=== PATIENT | male | born 1990 | race Caucasian/White ===

== ENCOUNTER 2020-04-20 14:30 | Emergency (ER) | payer BC ==
[~2020-04-20] VITALS: Ht 177.8 cm; Wt 120.0 kg
[2020-04-20 14:30] VITALS: BP 141/91
--- NOTE | 2020-04-20 14:44 | PHYS DOC ---
Past History Past Medical History: GERD Past Surgical History: No Surgical History Smoking: Cigarettes Alcohol Use: None Drug Use: None General Adult EDM: Chief Complaint: CHEST PAIN HPI: HPI: 29 year old male presents via EMS with report of chest pain with radiation to left arm. Denies trauma. Denies pleuritic pain. Denies leg swelling or calf tenderness. Cardiac risk factors of smoking. Denies history or family history of PE/DVT. 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 Reports some cough. Denies fever/chills. Review of Systems: Review of Systems: Constitutional: Denies fever or chills Eyes: Denies change in visual acuity HENT: Denies nasal congestion or sore throat Respiratory: Denies cough or shortness of breath Cardiovascular: Reports chest pain; denies edema GI: Denies abdominal pain, nausea, or vomiting Musculoskeletal: Denies back pain; reports left arm pain Neurologic: Denies headache, focal weakness or sensory changes Complete systems reviewed and found to be within normal limits, except as documented in the note. Heart Score: HEART Score for Chest Pain: HEART Score for Chest Pain Response (Comments) Value History Slighlty/Non-Suspicious 0 ECG Normal 0 Age < 45 0 Risk Factors 1 or 2 Risk Factors 1 Troponin < Normal Limit 0 Total 1 Risk Factors: Risk Factors: DM, Current or recent (<one month) smoker, HTN, HLP, family history of CAD, obesity. Risk Scores: Score 0 - 3: 2.5% MACE over next 6 weeks - Discharge Home Score 4 - 6: 20.3% MACE over next 6 weeks - Admit for Clinical Observation Score 7 - 10: 72.7% MACE over next 6 weeks - Early Invasive Strategies Physical Exam: PE: Constitutional: Well developed, well nourished, no acute distress, non-toxic appearance HENT: Normocephalic, atraumatic Eyes: Conjunctiva normal, no discharge Neck: Normal range of motion, no tenderness, supple Cardiovascular: Heart rate normal, regular rhythm Lungs & Thorax: Bilateral breath sounds clear to auscultation, no respiratory distress Abdomen: Soft, no tenderness Skin: Warm, dry, no erythema, no rash Extremities: No tenderness, left radial pulse +2, ROM intact, no edema Neurologic: Alert and oriented X 3, normal motor function, normal sensory function, no focal deficits noted Psychologic: Affect anxious, judgement normal EKG: EKG: @1438 NSR at 64bpm, NO ST elevation, QRS 90ms, QT/QTc 366/381ms Radiology/Procedures: Radiology/Procedures: PROCEDURE: PORTABLE CHEST 1V Single view of the chest. 04/20/2020 2:41 PM Indication: Chest pain Comparison: None Findings: Lordotic projection noted. There is no focal consolidation. There is no pleural effusion or pneumothorax. The cardiomediastinal silhouette and pulmonary vasculature are within normal limits. No acute osseous abnormalities are seen. Impression: No evidence of acute cardiopulmonary process. Electronically signed by: Jerry Stevens MD (04/20/2020 3:08 PM) [id number] Course & Med Decision Making: Course & Med Decision Making Pertinent Labs and Imaging studies reviewed. (See chart for details) Patient with low cardiac risk factors presents with chest pain and left arm pain. EKG stable. Labs obtained and posted to chart. Troponin WNL. PERC rule satisfied. CXR without acute process. Patient with history of positive COVID- [address] Denies fever. Reports cough. Patient reports he has been tested x 2 and both have been negative. Doubt COVID but cannot fully exclude. Patient advised can test at health department if warranted. HEART score 1. Patient stable for discharge home without outpatient follow-up with PCP. Discussed findings and plan with patient, who acknowledges understanding and agreement. COVID-19 CRITERIA: The patient was evaluated during the global COVID-19 pandemic, and that diagnosis was suspected/considered upon their initial presentation. Their evaluation, treatment and testing was consistent with current guidelines for patients who present with complaints or symptoms that may be related to COVID-19. Dragon Disclaimer: Dragon Disclaimer: This electronic medical record was generated, in whole or in part, using a voice recognition dictation system. Departure Departure: Impression: Primary Impression: Atypical chest pain Disposition: HOME/RESIDENCE PRIOR TO ADM Condition: STABLE Referrals: ALFREDA FINLEY MD, SCOTT S MD Patient Instructions: Chest Pain (Nonspecific), [id number] PERC Rule for PE PERC Rule for PE Response (Comments) Value Age > 50: No 0 HR > 100: No 0 Sa02 on room air <95%: No 0 Unilateral leg swelling: No 0 Hemoptysis: No 0 Recent surgery or trauma: No 0 Prior PE or DVT: No 0 Hormone use: No 0 Total 0 COVID-19 Assessment COVID-19 Patient Risks: Age 65 or older: No Sign of co-morbidity: No Exp to person + for COVID: Yes Exp to PUI: No Travel from affected area: No Lower respiratory symptoms: Yes Fever: No PPE Use: Full PPE with N95 mask or PAPR: Yes NAYE NEGRON DO April 20, 2020 14:44
[2020-04-20] MEDS ORDERED: IV NORMAL SALINE 1,000ML 1,000 ML IV ONE (14:55)
--- NOTE | 2020-04-20 15:11 | RAD ---
Single view of the chest. 04/20/2020 2:41 PM Indication: Chest pain Comparison: None Findings: Lordotic projection noted. There is no focal consolidation. There is no pleural effusion or pneumothorax. The cardiomediastinal silhouette and pulmonary vasculature are within normal limits. No acute osseous abnormalities are seen. Impression: No evidence of acute cardiopulmonary process. Electronically signed by: Jerry Stevens MD (04/20/2020 3:08 PM) [id number]
[2020-04-20 15:15] LABS: BASO # 0.1 x10^3/uL (0.0-0.2); BASO % 1 % (0-3); EOS # 0.3 x10^3/uL (0.0-0.7); EOS % 3 % (0-3); HEMOGLOBIN 15.3 g/dL (13.0-17.5); LYMPH # 4.9 x10^3/uL (1.0-4.8); LYMPH % 35 % (24-48); MEAN CORPUSCULAR HEMOGLOBIN 30 pg (25-35); MEAN CORPUSCULAR HGB CONC 33 g/dL (31-37); MEAN CORPUSCULAR VOLUME 90 fL (79-100); MONO % 7 % (0-9); NEUT # 7.6 x10^3uL (1.8-7.7); NEUT % 55 % (31-73); PLATELET COUNT 290 x10^3/uL (140-400); RED BLOOD COUNT 5.13 x10^6/uL (4.30-5.70); RED CELL DISTRIBUTION WIDTH 13.2 % (11.5-14.5); WHITE BLOOD COUNT 13.9 x10^3/uL (4.0-11.0)
[2020-04-20 15:28] LABS: CALCIUM 9.4 mg/dL (8.5-10.1); CREATININE 0.9 mg/dL (0.7-1.3); GFR 100.5
[2020-04-20 15:42] LABS: ALBUMIN 4.2 g/dL (3.4-5.0); ALBUMIN/GLOBULIN RATIO 1.4 (1.0-1.7); MAGNESIUM 2.2 mg/dL (1.8-2.4); TOTAL BILIRUBIN 0.5 mg/dL (0.2-1.0); TOTAL PROTEIN 7.3 g/dL (6.4-8.2)
--- NOTE | 2020-04-20 15:44 | EKG ---
[address] [address] Test Date: 2020-04-20 Test Time: 14:38:48 Pat Name: SANJUANA SINGH Department: Room: Gender: M Hedis Manager: : 1990 Requested By: NAYE NEGRON Order Number: [id number] Reading MD: Bernardino Tobar Measurements Intervals [place] Rate: 64 P: 0 [place]: 150 QRS: 28 QRSD: 90 T: 10 QT: 366 QTc: 381 Interpretive Statements SINUS RHYTHM NORMAL ECG RI6.02 No previous ECG available for comparison Electronically Signed On 04-20-2020 15:54:48 CDT by Bernardino Tobar
== END 2020-04-20 16:00 | disposition home or self-care (01) ==
LOC: ER 14:30
DX: R07.89 Other chest pain (principal); K21.9 Gastro-esophageal reflux disease without esophagitis; F17.210 Nicotine dependence, cigarettes, uncomplicated; M79.602 Pain in left arm
CPT/HCPCS: 36415; 71045; 80053; 82553; 83690; 83735; 83880; 84484; 85025; 93005; 99285-25; J7030

== ENCOUNTER 2020-07-27 19:10 | Emergency (ER) | payer BC, OTHER ==
[~2020-07-27] VITALS: Ht 177.8 cm; Wt 129.5 kg
[2020-07-27 19:10] VITALS: BP 153/95
--- NOTE | 2020-07-27 19:45 | RAD ---
Right finger 3 views: Reason for examination: Right third digit smashed in door with bruising and swelling distally. 3 views of the third digit were obtained. There is a fracture at the medial aspect of the terminal tuft of the distal phalanx in the right third digit which is minimally displaced. No other site of fracture or dislocation is seen. The bone density is normal. No abnormal periosteal reaction is seen. Joint spaces are maintained. IMPRESSION: Fracture at the medial aspect of the terminal tuft with minimal displacement. Electronically signed by: Carmel Ponce MD (07/27/2020 7:42 PM) JAMILAH
[2020-07-27] MEDS ORDERED: OXYC-325 PO (20:00)
--- NOTE | 2020-07-27 20:00 | PHYS DOC ---
Past History Past Medical History: GERD, Other Additional Past Medical Histor: KIDNEY STONES Past Surgical History: Other Additional Past Surgical Histo: SURGERY KIDNEY STONES Smoking: Cigarettes Alcohol Use: Occasionally Drug Use: None General Adult EDM: Chief Complaint: FINGER INJURY HPI: HPI: 29-year-old male presents with right middle finger pain. The patient works as a road crossing guard. He was closing a cell door and his middle finger got caught at the edge of the door and was compressed. It is swollen and very painful. He has partial bruise underneath the nail. He is concerned for fracture. He denies any other injuries or complaints. Review of Systems: Review of Systems: Constitutional: Denies fever or chills Eyes: Denies change in visual acuity HENT: Denies nasal congestion or sore throat Respiratory: Denies cough or shortness of breath Cardiovascular: Denies chest pain or edema GI: Denies abdominal pain, nausea, vomiting, bloody stools or diarrhea : Denies dysuria Musculoskeletal: Right middle finger pain Integument: Denies rash Neurologic: Denies headache, focal weakness or sensory changes Endocrine: Denies polyuria or polydipsia Lymphatic: Denies swollen glands Psychiatric: Denies depression or anxiety Heart Score: Risk Factors: Risk Factors: DM, Current or recent (<one month) smoker, HTN, HLP, family history of CAD, obesity. Risk Scores: Score 0 - 3: 2.5% MACE over next 6 weeks - Discharge Home Score 4 - 6: 20.3% MACE over next 6 weeks - Admit for Clinical Observation Score 7 - 10: 72.7% MACE over next 6 weeks - Early Invasive Strategies Allergies: Allergies: Allergies Coded Allergies Type Severity Reaction Last Updated Verified Penicillins Allergy Unknown 04/20/20 Yes Physical Exam: PE: Constitutional: Well developed, well nourished, no acute distress, non-toxic appearance. [] HENT: Normocephalic, atraumatic, bilateral external ears normal, oropharynx moist, no oral exudates, nose normal. [] Eyes: PERRLA, EOMI, conjunctiva normal, no discharge. [] Neck: Normal range of motion, no tenderness, supple, no stridor. [] Cardiovascular:Heart rate regular rhythm, no murmur [] Lungs & Thorax: Bilateral breath sounds clear to auscultation [] Abdomen: Bowel sounds normal, soft, no tenderness, no masses, no pulsatile masses. [] Skin: Warm, dry, no erythema, no rash. [] Back: No tenderness, no CVA tenderness. [] Extremities: Ecchymosis, swelling, tenderness of the right middle finger [] Neurologic: Alert and oriented X 3, normal motor function, normal sensory function, no focal deficits noted. [] Psychologic: Affect normal, judgement normal, mood normal. [] Current Patient Data: Vital Signs: Vital Signs Date Time Temp Pulse Resp B/P (MAP) Pulse Ox O2 Delivery O2 Flow Rate FiO2 07/27/20 19:10 97.1 97 18 153/95 (114) 97 Room Air EKG: EKG: [] Radiology/Procedures: Radiology/Procedures: [] Impressions: Right finger 3 views: Reason for examination: Right third digit smashed in door with bruising and swelling distally. 3 views of the third digit were obtained. There is a fracture at the medial aspect of the terminal tuft of the distal phalanx in the right third digit which is minimally displaced. No other site of fracture or dislocation is seen. The bone density is normal. No abnormal periosteal reaction is seen. Joint spaces are maintained. IMPRESSION: Fracture at the medial aspect of the terminal tuft with minimal displacement. Electronically signed by: Carmel Gudino MD (07/27/2020 7:42 PM) [facility], [facility] [place] DICTATED AND SIGNED BY: CARMEL GUDINO MD DATE: 07/27/201941 CC: SHAY LYNCH DO; PCP,UNKNOWN ~ Course & Med Decision Making: Course & Med Decision Making Pertinent Labs and Imaging studies reviewed. (See chart for details) The patient has a fracture of the distal tuft of the right middle phalange. The patient has had difficulty with pain medications working for him in the past. I will prescribe Percocet 5/325 for his fracture. He may need his fingernail drained if the pressure does not improve over the next 24 hours. Patient is aware of this and will return for further treatment if necessary. He is stable for discharge at this time. [] Dragon Disclaimer: Dragon Disclaimer: This electronic medical record was generated, in whole or in part, using a voice recognition dictation system. Departure Departure: Impression: Primary Impression: Fracture of phalanx of right middle finger Qualified Codes: S62.632A - Displaced fracture of distal phalanx of right middle finger, initial encounter for closed fracture Disposition: HOME/RESIDENCE PRIOR TO ADM Condition: STABLE Referrals: PCP,UNKNOWN (PCP) Patient Instructions: Finger Fracture, [id number] Scripts Oxycodone HCl/Acetaminophen (Percocet 5-325 mg Tablet) 1 Each Tablet 1 TAB PO PRN QID PRN for PAIN MDD 4 Tablet(s), #14 TAB 0 Refills Prov: SHAY LYNCH DO 07/27/20 Justification of Admission: Justification of Admission: Justification of Admission Dx: N/A SHAY LYNCH DO Jul 27, 2020 20:00
== END 2020-07-27 20:15 | disposition home or self-care (01) ==
LOC: ER 19:10
DX: S62.632A Displaced fracture of distal phalanx of right middle finger, initial encounter for closed fracture (principal); K21.9 Gastro-esophageal reflux disease without esophagitis; F17.210 Nicotine dependence, cigarettes, uncomplicated; Z87.442 Personal history of urinary calculi; Z88.0 Allergy status to penicillin; W23.0XXA Caught, crushed, jammed, or pinched between moving objects, initial encounter; Y93.89 Activity, other specified; Y92.149 Unspecified place in prison as the place of occurrence of the external cause; Y99.0 Civilian activity done for income or pay
CPT/HCPCS: 29130; 73140; 99283